=== PATIENT | male | born 1950 | race Caucasian/White ===

== ENCOUNTER 2022-09-12 06:23 | Day surgery (SDC) | payer MEDICARE, SELFPAY ==
[2022-09-12 06:35] VITALS: BMI 25.0
[2022-09-12 06:46] VITALS: BP 159/68; PULSE 61; RESP 16; TEMP 36.4; O2SAT 98
[2022-09-12] MEDS: Lactated Ringers 1,000 ML 20 ML IVCONT (06:57)
--- NOTE | 2022-09-12 07:43 | HO.ANESPROP2 ---
HPI - Anesthesia Eval Consult details Narrative: 72 yo male patient for colonoscopy [facility] Past Medical History Medical History CVA (cerebral vascular accident) High cholesterol HTN (hypertension) Family History Family history of problems with anesthesia: No Surgical History History of Problems with Anesthesia: No Social History Social History Patient Tobacco Use Status: Never used Tobacco Use of substances other than those prescribed or required for medical reasons: No Are you DNR?: No Advance Directives: No Advance Directives Information Provided: Yes Meds Allergies Allergy/AdvReac Type Severity Reaction Status Date / Time No Known Allergies Allergy Verified 09/09/22 15:22 Active Medications: Current Medications Sodium Biphosphate/Sodium Phosphate (Sodium Phosphate,Starke-Dibasic 133 Ml Enema) 133 ml ME ONCE PRN PRN Reason: Poor Colonoscopy Prep Results Home Medications Medication Instructions Recorded Confirmed Last Taken Type amlodipine 5 mg tablet 1 tab PO DAILY 09/09/22 09/09/22 Unknown History aspirin 81 mg tablet 81 mg PO DAILY 09/09/22 09/12/22 09/08/22 History atorvastatin 80 mg tablet 1 tab PO DAILY 09/09/22 09/09/22 Unknown History fluoxetine 10 mg capsule 1 cap PO DAILY 09/09/22 09/09/22 Unknown History tamsulosin 0.4 mg capsule 1 cap PO DAILY 09/09/22 09/09/22 Unknown History Exam Exam Date and Time: September 12, 2022 0743 Height,Weight and Vital Signs: Height 5 ft 8 in Weight 74.843 kg Last Vital Signs Temp 97.6 F 09/12/22 06:46 Pulse 61 09/12/22 06:46 Resp 16 09/12/22 06:46 BP 159/68 H 09/12/22 06:46 Pulse Ox 98 09/12/22 06:46 O2 Del Method 09/12/22 06:46 Airway Mallampati Class: III TM Dist: >3cm Neck ROM: Full Partial: Lower Loose/Missing/Broken Teeth: Yes (Some teeth missing top back) Heart: RRR Lungs: CTAB Assessment and Plan Assessment Anesthesia Assessment: Anesthesia Plan Discussed and Chart Reviewed Final Anesthetic Review Family History of Problems with Anesthesia: No History of Problems with Anesthesia: No NPO: Yes ASA Class: III Final Preanesthetic Review: No Changes in Pt Med Stat, Meds/Allgs Chart Reviewed, Consent Obtained/Reviewed and Anes Risks/Benef Reviewed Patient Risk: Intermediate Procedure Risk: Low Assessment/Block/Sedation in SS: Assess/Block/Sedation-SS Anesthetic Plan Anesthetic Plan: MAC: Disposition: Standard PACU
[2022-09-12 08:32] VITALS: BP 98/45; PULSE 55; RESP 12; TEMP 36.5; O2SAT 98
--- NOTE | 2022-09-12 08:34 | PM.OP ---
Brief Operative Note Date of Service: 09/12/22 Pre-op diagnosis: Screening Post-op diagnosis: other (Diverticulosis) Procedure: Colonoscopy to the cecum and TI Surgeon: Dev Keys Anesthesia: MAC Was an Nuclear Weapons Specialist used for this Procedure?: No Estimated blood loss (mL): 0 Pathology: none sent Condition: stable Disposition: PACU
[2022-09-12 08:47] VITALS: BP 129/69; PULSE 52; RESP 14; TEMP 36.7; O2SAT 98
--- NOTE | 2022-09-12 11:20 | OP_ITS ---
SURGEON: Dev Keys MD INDICATIONS: The patient presents for evaluation of colorectal cancer screening. Full consent was obtained from him for this, including risks of bleeding and perforation. PREOPERATIVE DIAGNOSIS: Colorectal cancer screening. POSTOPERATIVE DIAGNOSIS: PROCEDURE PERFORMED: Colonoscopy to the cecum and terminal ileum. ESTIMATED BLOOD LOSS: COMPLICATIONS: ANESTHESIA: Monitored anesthesia care. ASSISTANTS: SPECIMENS: POSTOPERATIVE DIAGNOSES: Colorectal cancer screening, diverticulosis, and internal hemorrhoids. PROCEDURE IN DETAIL: The patient was placed in left lateral decubitus position. The digital rectal exam revealed no abnormalities. The Olympus video pediatric colonoscope was entered into the rectum and advanced easily to the cecum. Once in the cecum, I did identify a normal-appearing cecal pouch with appendiceal orifice and a normal-appearing ileocecal valve. The terminal ileum was cannulated and appeared normal. The scope was withdrawn back in the colon. The entire cecum and ileocecal valve appeared normal. The scope was slowly withdrawn assessing all mucosal surfaces carefully. Preparation was excellent. I did not visualize any sign of polyps, colitis, or angiodysplasia. There was a mild amount of sigmoid diverticulosis. In the rectum, scope was retroflexed visualizing internal hemorrhoids, but no other pathology. The rectal mucosa appeared normal. The scope was straightened and withdrawn from the patient. He tolerated the procedure well and was returned to recovery area in stable condition. IMPRESSION: 1. Diverticulosis. 2. Internal hemorrhoids. PLAN: Given his age and today's negative exam, and negative family history of colon cancer, I do not think he would need a further screening colonoscopies. He would see me on a p.r.n. basis. He was advised to resume his aspirin today. MD COLTON Sosa/BELINDA / [id number]
== END 2022-09-12 09:25 | disposition home or self-care (01) ==
PROVIDERS: PCP Internal Medicine; Visit Provider Internal Medicine
PROC: 0DJD8ZZ Inspection of Lower Intestinal Tract, Via Natural or Artificial Opening Endoscopic (ICD-10-PCS; CPT 45378; principal; 2022-09-12 07:30)
DX: Z12.11 Encounter for screening for malignant neoplasm of colon (principal); K57.30 Diverticulosis of large intestine without perforation or abscess without bleeding; K64.8 Other hemorrhoids
CPT/HCPCS: G0121